=== PATIENT | male | born 1955 | race Caucasian/White ===

== ENCOUNTER 2024-06-25 14:53 | Outpatient (AMB) | payer OTHER, SELFPAY ==
--- NOTE | 2024-06-25 14:56 | A.OFFVIS_ITS ---
Intake Visit Reasons: enlarged scrotum Intake Note: Patient is present for ENLARGED SCROTUM Urology Medication:NONE Antibiotic Allergy:NONE Blood Thinner:NONE Personal Injury Litigation Paralegal Required: Yes Personal Injury Litigation Paralegal Language: Command And Control Specialist Name: [id number]--Fgpkra Information Interpreted: non-clinical & clinical Allergies No Known Allergies Allergy (Verified 06/25/24 14:59) HPI Comments Details: History of Present Illness The patient is a 69-year-old male presenting with scrotal swelling. He noticed this swelling approximately two years ago, specifically in the left scrotum, noting that it appeared enlarged compared to before. There has been no significant medical evaluation until now, and the swelling has been slowly increasing in size during this period. The patient has undergone an ultrasound about a month ago that indicated the presence of fluid around the testicle consistent with a hydrocele. The patient does not report any significant urinary symptoms, such as burning or obstructive symptoms, but acknowledges occasional discomfort from the swelling. Urinary Symptoms Review - No urinary pain or burning - No difficulty in urination - Absence of urinary frequency or urgency Results - Ultrasound: Fluid around the testicle, suggestive of a hydrocele Discussion Notes I discussed with the patient the findings of the ultrasound, which are consistent with a hydrocele. I explained that a hydrocele is a collection of fluid around the testicle, often observed as swelling in the scrotal area. Given the persistence and gradual increase in size, I recommended a surgical intervention to remove the fluid, which is generally performed as an outpatient procedure. The procedure involves making an incision on the skin, opening the sac, draining the fluid, and then repairing the area. I have informed the patient that while it is a routine procedure, stopping any blood thinning medications such as aspirin or ibuprofen two weeks prior is necessary. I explained the procedure is typically low-risk but discussed potential risks and benefits, and the patient expressed understanding and agreement to proceed. Proper instructions for the pre-operative and post-operative care, including the need for transportation, were given. Plan For the confirmed scrotal swelling identified as a hydrocele, surgery is planned. We will perform an outpatient hydrocelectomy, with cessation of blood thinning medications advised two weeks in advance. The procedure involves incision, fluid drainage, and repair to address the hydrocele effectively. The patient is informed of the overall positive prognosis and low instance of complications, although return precautions were emphasized. I have ensured he understands the surgical risks and benefits, having obtained his consent to proceed with surgery. Specific guidance on pre-operative and post-operative care was provided, including dietary restrictions and transportation arrangements. Patient Instructions - Discontinue all blood thinning medications such as aspirin and ibuprofen at least two weeks before surgery. - Remain NPO after midnight prior to the day of the procedure (no food or drink). - Arrange for transportation to and from the hospital on the day of surgery. - Follow all pre-operative and post-operative instructions carefully. - Contact the office if you have any questions or need further clarification about instructions or the procedure. - Plan to be admitted and discharged on the same day for this outpatient procedure. Patient was informed and verbally consented to the use of an ambient scribe for clinic note documentation during this visit. Review of Systems Const All systems reviewed & are unremarkable except as noted in HPI and below Reports no additional complaints Eyes Reports no additional complaints ENT Reports no additional complaints Card Reports no additional complaints Resp Reports no additional complaints GI Reports no additional complaints Reports as per HPI Musc Reports no additional complaints Skin/Breast Reports system reviewed and no additional complaints, except as documented Neuro Reports no additional complaints Psych Reports no additional complaints Endo Reports no additional complaints Juan/Lymph Reports no additional complaints Aller/Immun Reports no additional complaints Physical Exam Const General: healthy appearing, no acute distress and well developed Orientation/consciousness: patient oriented x3 HEENT Head: Yes normocephalic and Yes atraumatic Eyes Conjunctivae: conjunctivae normal Neck Neck: Yes normal visual inspection Chest Chest palpation & inspection: normal inspection of the chest Resp Effort & Inspection: normal respiratory effort GI Inspection: Yes normal to inspection Other: left scrotum enlarged, findings suggestive of hydrocele Penis: normal penis and uncircumcised Neuro General: patient oriented x3 Psych Appearance: grossly normal Affect: normal affect Results AMB Urinalysis, Automated UA Leukoctes 0 Kerri/uL Last Edit by Ashley Spivey on 06/25/24 15:12 UA Nitrite Negative Last Edit by Ashley Spivey on 06/25/24 15:12 UA Urobilinogen 3.5 mg/dL Last Edit by Ashley Spivey on 06/25/24 15:12 UA Protein 1 mg/dL Last Edit by Ashley Spivey on 06/25/24 15:12 UA pH 6.0 Last Edit by Ashley Spivey on 06/25/24 15:12 UA Blood 0 Adriel/uL Last Edit by Ashley Spivey on 06/25/24 15:12 UA Specific [place] 1.020 Last Edit by Ashley Spivey on 06/25/24 15:12 UA Ketone Negative Last Edit by Ashley Spivey on 06/25/24 15:12 UA Bilirubin 17 mg/dL Last Edit by Ashley Spivey on 06/25/24 15:12 UA Glucose 0 mg/dL Last Edit by Ashley Spivey on 06/25/24 15:12 Results Reviewed Results Reviewed: Laboratory Last Values Urine pH (Auto) 6.0 06/25/24 15:08 Specific [place] (Auto) 1.020 06/25/24 15:08 Urine Protein (Auto) 1 mg/dL 06/25/24 15:08 Glucose (UA)(Auto) 0 mg/dL 06/25/24 15:08 Urine Ketones (Auto) Negative 06/25/24 15:08 Urine Blood (Auto) 0 Adriel/uL 06/25/24 15:08 Urine Nitrite (Auto) Negative 06/25/24 15:08 Urine Bilirubin (Auto) 17 mg/dL 06/25/24 15:08 Urine Urobilinogen (Auto) 3.5 mg/dL 06/25/24 15:08 Leukocyte Esterase (Auto) 0 Kerri/uL 06/25/24 15:08 Assessment & Plan Assessment & Plan (1) Scrotal swelling: Code(s): N50.89 - Other specified disorders of the male genital organs Category: Medical (2) Hydrocele, left: Code(s): N43.3 - Hydrocele, unspecified Category: Medical Orders: Orders AMB Urinalysis Automated Today Z13.9 - Encounter for screening, unspecified Coding Level of Care Code New Pt Level 4 (10695) Diagnoses Scrotal swelling N50.89 Hydrocele, left N43.3
--- OUTSIDE RECORDS SUMMARY | 2024-06-25 16:16 | XMS_ITS | Clinical Summary ---
Author Organization [facility] ity Address [address] [place] [address] Care Team Providers Care Certified Master Safe Technician Name Role Phone Unavailable Primary Care Provider Unavailabl e Social History Tobacco Use Types Packs/Day Years Used Date Smoking Tobacco: Never Assessed Sex and Gender Information Value Date Recorded Sex Assigned at Not on file Legal Sex Male 8:53 AM EST Gender Identity Not on file Sexual Orientation Not on file Plan of Treatment Health Maintenance Due Date Last Done Comments DTaP,Tdap,and Td Vaccines (1 - Tdap) 1975 Pneumococcal Vaccine: 50+ Ye ars (1 of 1 - PCV) 2006 Zoster Vaccines (1 of 2) 2006 COVID-19 Vaccine ( - 2023-2 5 season) 2023 Influenza Vaccine (#1) 2023 RSV Immunization Patients 60 + Years Old (1 - 1-dose 75+ series) 2031 HIB Vaccines Aged Out No longer eligi ble based on patient's age to complete this topic HPV Vaccines Aged Out No longer eligi ble based on patient's age to complete this topic Hepatitis A Vaccines Aged Out No long er eligible based on patient's age to complete this topic Hepatitis B Vaccines Aged Out No long er eligible based on patient's age to complete this topic IPV Vaccines Aged Out No longer eligi ble based on patient's age to complete this topic MMR Vaccines Aged Out No longer eligi ble based on patient's age to complete this topic Meningococcal ACWY Vaccine Aged Out N o longer eligible based on patient's age to complete this topic Meningococcal B Vacine Aged Out No lo nger eligible based on patient's age to complete this topic RSV Immunization Patients Un alecia 20 months Aged Out No longer eligible b ased on patient's age to complete this topic Varicella Vaccines Aged Out No longer eligible based on patient's age to complete this topic
== END 2024-06-25 16:20 | disposition home or self-care (01) ==
LOC: HO.HUSH 14:53
PROVIDERS: PCP Nurse Practitioner Family; Visit Provider Urology
DX: Z13.9 Encounter for screening, unspecified (principal)

== ENCOUNTER → 2024-06-25 14:53 | Outpatient (BNVA) | payer OTHER, SELFPAY | PROVIDERS: PCP Nurse Practitioner Family; Visit Provider Urology | DX: N50.89 Other specified disorders of the male genital organs (principal); N43.3 Hydrocele, unspecified; Z13.9 Encounter for screening, unspecified | CPT/HCPCS: 81003 ==

== ENCOUNTER 2024-10-18 15:54 | Outpatient (AMB) | payer OTHER, SELFPAY ==
--- NOTE | 2024-10-17 16:03 | A.OFFVIS_ITS ---
Intake Visit Reasons: US F/u Intake Note: Patient presents today for US follow up * Scrotum US 08/16 Urology Medication:NONE Antibiotic Allergy:NONE Blood Thinner:NONE Allergies No Known Allergies Allergy (Verified 10/18/24 16:32) Medication List - Last Reconciled 10/18/24 by Vivian Ospina MD amlodipine 10 mg PO DAILY cholecalciferol (vitamin D3) 25 mcg PO DAILY ibuprofen 600 mg PO TID omeprazole 20 mg PO DAILY omeprazole magnesium 20 mg PO DAILY polyethylene glycol 3350 17 grams PO DAILY trazodone 50 mg PO BEDTIME venlafaxine ER 37.5 mg PO DAILY HPI Comments Details: 10/18/2024--[id number] [facility] scrotal ultrasound left hydrocele 91 mL, minimal right hydrocele History of Present Illness - The patient is a 69-year-old male presenting with scrotal swelling and discomfort. - The patient was initially evaluated for scrotal swelling, with an ultrasound in September revealing a moderate left hydrocele. - The patient experiences discomfort primarily during exercise and certain positions. - The discomfort is not constant and is exacerbated by specific movements or positions. - The patient has been informed that chronic testicular pain may persist even after fluid drainage. - Exam performed today, testicle nontender, left hydrocele noted Results - Ultrasound of the scrotum: 08/2024--Moderate left hydrocele noted 09/30/24-telehealth did not bean picker phone 06/25/24--History of Present Illness: Shashi is a 69-year-old male presenting with scrotal swelling. He noticed this swelling approximately two years ago, specifically in the left scrotum, noting that it appeared enlarged compared to before. The swelling has been slowly increasing in size during this period. The patient states he had an ultrasound done at [facility] that he states indicated the presence of fluid around the testicle consistent with a hydrocele. The patient does not report any significant urinary symptoms, such as burning or obstructive symptoms, but acknowledges occasional discomfort from the swelling. Urinary Symptoms Review - No urinary pain or burning - No difficulty in urination - Absence of urinary frequency or urgency Review of Systems Const All systems reviewed & are unremarkable except as noted in HPI and below Reports no additional complaints Eyes Reports no additional complaints ENT Reports no additional complaints Card Reports no additional complaints Resp Reports no additional complaints GI Reports no additional complaints Reports as per HPI Musc Reports no additional complaints Skin/Breast Reports system reviewed and no additional complaints, except as documented Neuro Reports no additional complaints Psych Reports no additional complaints Endo Reports no additional complaints Juan/Lymph Reports no additional complaints Aller/Immun Reports no additional complaints Results AMB Urinalysis, Automated UA Leukoctes 15 Kerri/uL Last Edit by Crystal Spivey on 10/18/24 16:33 UA Nitrite Negative Last Edit by Crystal Spivey on 10/18/24 16:33 UA Urobilinogen 0.2 mg/dL Last Edit by Crystal Spivey on 10/18/24 16:33 UA Protein 30 mg/dL Last Edit by Crystal Spivey on 10/18/24 16:33 UA pH 6.0 Last Edit by Crystal Spivey on 10/18/24 16:33 UA Blood 0 Adriel/uL Last Edit by Crystal Spivey on 10/18/24 16:33 UA Specific [place] 1.020 Last Edit by Crystal Spivey on 10/18/24 16:33 UA Ketone Positive Last Edit by Crystal Spivey on 10/18/24 16:33 UA Bilirubin 1 mg/dL Last Edit by Crystal Spivey on 10/18/24 16:33 UA Glucose 0 mg/dL Last Edit by Crystal Spivey on 10/18/24 16:33 Results Reviewed Results Reviewed: Laboratory Last Values Urine pH (Auto) 6.0 10/18/24 15:43 Specific [place] (Auto) 1.020 10/18/24 15:43 Urine Protein (Auto) 30 mg/dL 10/18/24 15:43 Glucose (UA)(Auto) 0 mg/dL 10/18/24 15:43 Urine Ketones (Auto) Positive 10/18/24 15:43 Urine Blood (Auto) 0 Adriel/uL 10/18/24 15:43 Urine Nitrite (Auto) Negative 10/18/24 15:43 Urine Bilirubin (Auto) 1 mg/dL 10/18/24 15:43 Urine Urobilinogen (Auto) 0.2 mg/dL 10/18/24 15:43 Leukocyte Esterase (Auto) 15 Kerri/uL 10/18/24 15:43 Assessment & Plan Assessment & Plan (1) Scrotal swelling: Code(s): N50.89 - Other specified disorders of the male genital organs Category: Medical (2) Hydrocele, left: Code(s): N43.3 - Hydrocele, unspecified Category: Medical (3) Screening PSA (prostate specific antigen): Code(s): Z12.5 - Encounter for screening for malignant neoplasm of prostate Category: Medical Plan Plan - Schedule follow-up with nurse practitioner for aspiration of hydrocele fluid and instillation of sclerosing agent to prevent recurrence. - Recommendation to wear athletic supportive underwear to alleviate discomfort. - Order PSA testing as part of preventative care, with instructions to avoid coffee and sexual activity 48 hours prior to testing. Orders: Orders AMB Urinalysis Automated Today Z13.9 - Encounter for screening, unspecified PSA,Total (Free>4and<10) Today Z12.5 - Encounter for screening for malignant neoplasm of prostate Patient Instructions: The patient had an opportunity to ask questions regarding treatment plan. The patient expressed understanding and agreement with the above treatment plan. The patient is aware they should contact our office by phone for worsening of their current condition or the appearance of new symptoms. Compliance is encouraged with any medications and followup testing that is ordered. It is a privilege to be allowed the opportunity to participate in the urologic care of your patient. If you have any questions or concerns regarding treatment for the above conditions please do not hesitate to contact me. The office telephone contact is [phone]. This note is constructed in part using voice recognition software. While every effort has been made to ensure accuracy manufacturing software engineer errors may have been included. Yours sincerely, Vivian Ospina MD Scribe Plan - Not visible on output: Patient was informed and verbally consented to the use of an ambient scribe for clinic note documentation during this visit. Coding Level of Care Code Est Pt Level 4 (09387) Diagnoses Scrotal swelling N50.89 Hydrocele, left N43.3 Screening PSA (prostate specific antigen) Z12.5
--- OUTSIDE RECORDS SUMMARY | 2024-10-18 15:56 | XMS_ITS | Clinical Summary ---
Author Organization [facility] [employer] [facility] ity Address [address] [place] [address] Care Team Providers Care Tailor Helper Name Role Phone Unavailable Primary Care Provider [...] Vaccines (1 of 2) 2006 COVID-19 Vaccine (1 - 2023-2 5 season) 2023 Influenza Vaccine (#1) 2024 RSV Immunization Adult Patie nts (1 - 1-dose 75+ series) 2031 HIB [...] age to complete this topic Meningococcal B Vaccine Aged Out No l onger eligible based on patient's age to complete this topic RSV Immunization Patients Un alecia 20 months Aged Out No longer eligible b ased on patient's age to complete this topic Varicella Vaccines Aged Out No longer eligible based on patient's age to complete this topic
== END 2024-10-18 16:57 | disposition home or self-care (01) ==
LOC: HO.HUSH 15:54
PROVIDERS: PCP Nurse Practitioner Family; Visit Provider Urology
DX: N50.89 Other specified disorders of the male genital organs (principal); N43.3 Hydrocele, unspecified; Z12.5 Encounter for screening for malignant neoplasm of prostate; Z13.9 Encounter for screening, unspecified
CPT/HCPCS: 99214

== ENCOUNTER → 2024-10-18 15:54 | Outpatient (BNVA) | payer OTHER, SELFPAY | PROVIDERS: PCP Nurse Practitioner Family; Visit Provider Urology | DX: N50.89 Other specified disorders of the male genital organs (principal); N43.3 Hydrocele, unspecified; Z12.5 Encounter for screening for malignant neoplasm of prostate | CPT/HCPCS: 81003; 99212 ==

== ENCOUNTER 2024-12-21 11:48 | Outpatient (REF) | payer OTHER, SELFPAY ==
--- OUTSIDE RECORDS SUMMARY | 2024-12-21 14:18 | XMS_ITS | Clinical Summary ---
Author Organization [facility] [employer] [facility] ity Address [address] [place] [address] Care Team Providers Care Baster Hand Name Role Phone Unavailable Primary Care Provider [...] 2006 Zoster Vaccines (1 of 2) 2006 Depression Screening 04/14/2024 COVID-19 Vaccine (1 - 2023-2 5 season) 2024 Influenza Vaccine (#1) 2024 RSV Immunization Adult [...]
[2024-12-21 19:11] LABS: PSA,Total (Free>4and<10) 1.20 ng/mL (0.00-4.00)
== END 2024-12-21 11:49 | disposition home or self-care (01) ==
LOC: HO.HKASLDS 11:48
PROVIDERS: Visit Provider Urology
DX: Z12.5 Encounter for screening for malignant neoplasm of prostate (principal)
CPT/HCPCS: 36415; 84153

== ENCOUNTER 2024-12-28 09:57 | Outpatient (AMB) | payer OTHER, SELFPAY ==
--- NOTE | 2024-12-28 09:57 | MHC.OFFVIS ---
Intake Visit Reasons: Drainage left hydrocele/PSA Intake Note: Patient is present for drainage lft hydrocele Urology Medication:none Antibiotic Allergy:none Blood Thinner:none Commercial Lines Assistant Required: No Allergies No Known Allergies Allergy (Verified 12/28/24 15:48) Medication List - Last Reconciled 12/28/24 by YAS Scott- amlodipine 10 mg PO DAILY cholecalciferol (vitamin D3) 25 mcg PO DAILY ibuprofen 600 mg PO TID omeprazole 20 mg PO DAILY omeprazole magnesium 20 mg PO DAILY polyethylene glycol 3350 17 grams PO DAILY trazodone 50 mg PO BEDTIME venlafaxine ER 37.5 mg PO DAILY HPI Comments Details: Shashi is a pleasant 69-year-old Romanian-speaking male patient of Dr. Tilley who was accompanied by his daughter at today's office visit. He has a past medical history of GERD and hyperlipidemia. He presents to the office today for left-sided hydrocele drainage. Of note, patient previously followed up with Dr. Obed Serrano 2 months ago at which time scrotal ultrasound noted left hydrocele of a proximally 90 mL with minimal right hydrocele and discussion regarding in office drainage verses surgical intervention verses surveillance monitoring was discussed. He presents to the office today and wishes to proceed with left sided hydrocele drainage. Consent was obtained. Procedure : Hydrocele drainage performed in office Consent verified Indications for procedure: Left hydrocele Anesthesia: local anesthetic Procedure: The patient was placed in the supine position the hydrocele was examined and verified The cord was grasped between 2 fingers using a pinching technique The skin was cleaned with alcohol wipe Local anesthetic was infiltrated in a fan-like fashion to ensure adequate distribution Attention was directed to the hydrocele itself The hydrocele was elevated using the left hand Betadine was used to sterilize the overlying skin A small anesthetic bleb was raised An 18 gauge Angiocath was inserted to the hydrocele Total drainage 100cc of straw-colored fluid A lidocaine/doxycycline mixture was then slowly injected into the hydrocele space A total of 10 cc lidocaine and 200 mg of doxycycline was utilized Patient tolerated the procedure well with minimal discomfort CPT 11361 When asked he denies any bothersome urinary issues or concerns. He denies urinary urgency, urinary frequency, incontinence, nocturia, hematuria, dysuria, foul smelling urine, changes to urinary stream, flank pain, fever, and or chills. He is happy with his current voiding parameters. PSA 01/06 1.2. Review of Systems Const All systems reviewed & are unremarkable except as noted in HPI and below Physical Exam Const General: cooperative, healthy appearing, comfortable, no acute distress, well developed, alert and awake Orientation/consciousness: patient oriented x3 Limitations: language barrier HEENT Head: Yes normal to inspection, Yes normocephalic and Yes atraumatic Ears: hearing grossly normal bilaterally Eyes General: appearance normal, both eyes and all related structures Neck Neck: Yes normal visual inspection and Yes trachea midline Chest Chest palpation & inspection: normal inspection of the chest Resp Effort & Inspection: normal respiratory effort and able to speak in complete sentences Cardio Rate: regular rate GI Inspection: Yes normal to inspection General: Yes no CVA tenderness Male General Exam: Yes normal external exam Penis: normal penis and circumcised Meatus: meatus normal Back/Spine/Pelvis Back: no CVA tenderness Skin General skin exam: no rashes or lesions noted Neuro General: patient oriented x3 Extrem General: Yes normal to inspection Psych Appearance: grossly normal and well kempt Mental Status: mental status grossly normal Speech and movement: Normal speech and movement present and Clear speech present Affect: normal affect Attitude: cooperative Thought process: Normal thought process present Thought content: Normal thought content present Insight: Fair insight present (Psych) Judgement: Fair judgement present (Psych) Office Procedures I&D Drain Details: Procedure : Hydrocele drainage performed in office Consent verified Indications for procedure: left hydrocele Anesthesia: local anesthetic Procedure: The patient was placed in the supine position the hydrocele was examined and verified The cord was grasped between 2 fingers using a pinching technique The skin was cleaned with alcohol wipe Local anesthetic was infiltrated in a fan-like fashion to ensure adequate distribution Attention was directed to the hydrocele itself The hydrocele was elevated using the left hand Betadine was used to sterilize the overlying skin A small anesthetic bleb was raised An 18 gauge Angiocath was inserted to the hydrocele Total drainage 100cc of straw-colored fluid A lidocaine/doxycycline mixture was then slowly injected into the hydrocele space A total of 10 cc lidocaine and 200 mg of doxycycline was utilized Patient tolerated the procedure well with minimal discomfort CPT 07134 All charges added?: Procedure code (CPT) selection complete Office Meds lidocaine HCl 10 mg/mL (1 %) injection solution Performing Provider: RANDY Scott [facility] Documented (not given) by: RANDY Scott on 12/28/24 15:56 Dose Route Admin Location Dispensed Lot Number Expiration Date [facility] Patient Consumer Marketer 10 mL subcut mL Total Dispensed Waste n/a n/a Results AMB Urinalysis, Automated UA Leukoctes 0 Kerri/uL Last Edit by RAJ Bermudez on 12/28/24 10:18 UA Nitrite Negative Last Edit by Katelynn Dove [facility] on 12/28/24 10:18 UA Urobilinogen 0.2 mg/dL Last Edit by Katelynn Dove [facility] on 12/28/24 10:18 UA Protein 15 mg/dL Last Edit by Katelynn Dove [facility] on 12/28/24 10:18 UA pH 6.0 Last Edit by Katelynn Dove [facility] on 12/28/24 10:18 UA Blood 0 Adriel/uL Last Edit by Katelynn Dove [facility] on 12/28/24 10:18 UA Specific Silex 1.015 Last Edit by Katelynn Dove [facility] on 12/28/24 10:18 UA Ketone Negative Last Edit by Katelynn Dove [facility] on 12/28/24 10:18 UA Bilirubin 1 mg/dL Last Edit by Katelynn Dove [facility] on 12/28/24 10:18 UA Glucose 0 mg/dL Last Edit by Katelynn Dove [facility] on 12/28/24 10:18 Results Reviewed Results Reviewed: Laboratory Last Values Urine pH (Auto) 6.0 12/28/24 10:17 Specific Silex (Auto) 1.015 12/28/24 10:17 Urine Protein (Auto) 15 mg/dL 12/28/24 10:17 Glucose (UA)(Auto) 0 mg/dL 12/28/24 10:17 Urine Ketones (Auto) Negative 12/28/24 10:17 Urine Blood (Auto) 0 Adriel/uL 12/28/24 10:17 Urine Nitrite (Auto) Negative 12/28/24 10:17 Urine Bilirubin (Auto) 1 mg/dL 12/28/24 10:17 Urine Urobilinogen (Auto) 0.2 mg/dL 12/28/24 10:17 Leukocyte Esterase (Auto) 0 Kerri/uL 12/28/24 10:17 Assessment & Plan Assessment & Plan (1) Hydrocele, left: Code(s): N43.3 - Hydrocele, unspecified Category: Medical Plan In office left-sided hydrocele was drained; as noted above. Patient tolerated procedure well. He currently denies any bothersome urinary issues or concerns. He reports be happy with current voiding parameters. Recent PSA results were reviewed. Consent was obtained. We discussed potential causes of hydroceles as well as further treatment options and risks and benefits of these treatment options. All questions were answered. Follow-up in 2 weeks; or sooner with any issues, concerns, and or questions. Orders: Orders AMB Urinalysis Automated 12/28/24 Z13.9 - Encounter for screening, unspecified AMB Incision & Drainage 12/28/24 N43.3 - Hydrocele, unspecified, N50.89 - Other specified disorders of the male genital organs Medications: New lidocaine HCl 10 mL subcut ONCE 30 mL 0RF N43.3 - Hydrocele, unspecified, N50.89 - Other specified disorders of the male genital organs Patient Instructions: The patient had an opportunity to ask questions regarding the treatment plan. All questions were answered. Physical exam, labs, and imaging were discussed and reviewed in detail. As well as risks, benefits, and discussion of treatment choices. No major barriers to understanding were identified. The patient expressed understanding and agreement with the above treatment plan. The patient was made aware they should contact our office by phone for worsening of their current condition, the appearance of new symptoms, or with any questions or concerns. Compliance is encouraged with any medications and follow up testing that is ordered. It is a privilege to be allowed the opportunity to participate in? your urological care.? Again, if you have any questions or concerns If you have any questions or concerns please do not hesitate to contact me. The office is [phone]. This note is constructed using voice recognition software. While every effort has been made to ensure accuracy executive staff assistant errors may have been included. Yours sincerely, RANDY Scott Coding Level of Care Code Procedure Only Diagnoses Hydrocele, left N43.3
--- OUTSIDE RECORDS SUMMARY | 2024-12-28 12:53 | XMS_ITS | Clinical Summary ---
Author Organization [facility] [employer] [facility] ity Address [address] [place] [address] Care Team Providers Care Cake Press Operator Name Role Phone Unavailable Primary Care Provider [...]
== END 2024-12-28 10:58 | disposition home or self-care (01) ==
PROVIDERS: PCP Nurse Practitioner Family; Visit Provider Nurse Practitioner Family
DX: N43.3 Hydrocele, unspecified (principal)
CPT/HCPCS: 55000

== ENCOUNTER → 2024-12-28 09:57 | Outpatient (BNVA) | payer OTHER, SELFPAY | PROVIDERS: PCP Nurse Practitioner Family; Visit Provider Nurse Practitioner Family | DX: N43.2 Other hydrocele (principal); N50.89 Other specified disorders of the male genital organs | CPT/HCPCS: 55000; 81003 ==

== ENCOUNTER 2025-01-27 08:56 | Outpatient (AMB) | payer OTHER, SELFPAY ==
--- NOTE | 2025-01-27 09:14 | A.OFFVIS_ITS ---
Intake Visit Reasons: 1m Follow up Intake Note: Patient is present for 1M F/U Urology Medication:LIDOCAINE Antibiotic Allergy:NONE Blood Thinner:NONE Oil Lease Operator Required: Yes Oil Lease Operator Name: Frandy [id number] Allergies No Known Allergies Allergy (Verified 01/27/25 09:46) Medication List - Last Reconciled 01/27/25 by YAS Scott-JENNIFER amlodipine 10 mg PO DAILY cholecalciferol (vitamin D3) 25 mcg PO DAILY omeprazole 20 mg PO DAILY omeprazole magnesium 20 mg PO DAILY polyethylene glycol 3350 17 grams PO DAILY trazodone 50 mg PO BEDTIME venlafaxine ER 37.5 mg PO DAILY HPI Comments Details: Shashi is a pleasant 69-year-old Wolof-speaking male patient of Dr. Tilley who was accompanied by his daughter at today's office visit. He has a past medical history of GERD and hyperlipidemia. He presents to the office today for follow- up of his left-sided hydrocele drainage that was performed in office approximately 1 month ago. In discussion with the patient today reports to be doing and feeling well. He reports significant improvement in intermittent episodes of scrotal discomfort he had been experiencing prior to left-sided hydrocele drainage. In assessment of the patient today no open areas, lesions, and or drainage noted. He currently denies any bothersome urinary issues or concerns. He denies urinary urgency, urinary frequency, incontinence, nocturia, hematuria, dysuria, foul smelling urine, changes to urinary stream, flank pain, fever, and or chills. He is happy with his current voiding parameters. In office urinalysis results reviewed with the patient today. PSA 01/06 1.2. All questions were answered. He otherwise offers no other issues or concerns at this time. Review of Systems Const All systems reviewed & are unremarkable except as noted in HPI and below Physical Exam Const General: cooperative, comfortable, no acute distress, well developed, alert and awake Orientation/consciousness: patient oriented x3 HEENT Head: Yes normal to inspection, Yes normocephalic and Yes atraumatic Ears: hearing grossly normal bilaterally Eyes General: appearance normal, both eyes and all related structures Neck Neck: Yes normal visual inspection and Yes trachea midline Chest Chest palpation & inspection: normal inspection of the chest Resp Effort & Inspection: normal respiratory effort and able to speak in complete sentences Cardio Rate: regular rate GI Inspection: Yes normal to inspection General: Yes no CVA tenderness Back/Spine/Pelvis Back: no CVA tenderness Skin General skin exam: no rashes or lesions noted Neuro General: patient oriented x3 Extrem General: Yes normal to inspection Psych Appearance: grossly normal and well kempt Mental Status: mental status grossly normal Speech and movement: Normal speech and movement present and Clear speech present Affect: normal affect Attitude: cooperative Thought process: Normal thought process present Thought content: Normal thought content present Insight: Fair insight present (Psych) Judgement: Fair judgement present (Psych) Assessment & Plan Assessment & Plan (1) Screening PSA (prostate specific antigen): Code(s): Z12.5 - Encounter for screening for malignant neoplasm of prostate Category: Medical Plan In office urinalysis results with the patient today; as noted above. He currently denies any bothersome urinary issues or concerns. He reports be happy with current voiding parameters. Will continue with surveillance monitoring. We did discussed potential causes of hydroceles. All questions were answered Will obtain PSA in 1 year. Follow-up in 1 year with PSA and PVR; or sooner with any issues, concerns, and or questions. Orders: Orders AMB Urinalysis Automated Today Z13.9 - Encounter for screening, unspecified Prostate Specific Antigen 1 Year Z12.5 - Encounter for screening for malignant neoplasm of prostate Patient Instructions: The patient had an opportunity to ask questions regarding the treatment plan. All questions were answered. Physical exam, labs, and imaging were discussed and reviewed in detail. As well as risks, benefits, and discussion of treatment choices. No major barriers to understanding were identified. The patient expressed understanding and agreement with the above treatment plan. The patient was made aware they should contact our office by phone for worsening of their current condition, the appearance of new symptoms, or with any questions or concerns. Compliance is encouraged with any medications and follow up testing that is ordered. It is a privilege to be allowed the opportunity to participate in? your urological care.? Again, if you have any questions or concerns If you have any questions or concerns please do not hesitate to contact me. The office is [phone]. This note is constructed using voice recognition software. While every effort has been made to ensure accuracy belt and link shop supervisor errors may have been included. Yours sincerely, RANDY Scott Coding Level of Care Code Est Pt Level 3 (07435) Complex EM visit Add On G2211 Diagnoses Screening PSA (prostate specific antigen) Z12.5
--- OUTSIDE RECORDS SUMMARY | 2025-01-27 09:49 | XMS_ITS | Clinical Summary ---
Author Organization [facility] [employer] [facility] ity Address [address] [place] [address] Care Team Providers Care Customs Compliance Director Name Role Phone Unavailable Primary Care Provider [...]
== END 2025-01-27 09:47 | disposition home or self-care (01) ==
LOC: HO.HUSH 08:56
PROVIDERS: PCP Nurse Practitioner Family; Visit Provider Nurse Practitioner Family
DX: Z13.9 Encounter for screening, unspecified (principal); Z12.5 Encounter for screening for malignant neoplasm of prostate
CPT/HCPCS: 99213; G2211

== ENCOUNTER → 2025-01-27 08:56 | Outpatient (BNVA) | payer OTHER, SELFPAY | PROVIDERS: PCP Nurse Practitioner Family; Visit Provider Nurse Practitioner Family | DX: Z12.5 Encounter for screening for malignant neoplasm of prostate (principal); Z13.9 Encounter for screening, unspecified | CPT/HCPCS: 81003; 99212 ==